=== PATIENT | female | born 1970 | race American Indian/Alaskan Native ===

== ENCOUNTER 2019-08-12 15:15 | Emergency (ER) | payer MEDICAID, OTHER ==
[2019-08-12] MEDS ORDERED: Albuterol/Ipratropium 3.0-0.5 MG/3 ML Neb Soln NEB ONE (15:53)
[2019-08-12] MEDS ORDERED: methylPREDNISolone Sodium Succinate 125 MG/2 ML SDV IVPUSH ONE (15:55)
[2019-08-12] MEDS ORDERED: Sodium Chloride 0.9% 10 ML Syringe FLUSH PRN (15:55)
--- NOTE | 2019-08-12 16:36 | CR ---
EXAMINATION: Chest 2V SEX: Female AGE: 48 years CLINICAL HISTORY: 48-year-old female smoker with productive cough and rhonchi on the right. INTERPRETATION: Abnormal shaggy accentuation of the perihilar lung markings with some peribronchial "cuffing" and generalized mild air trapping typical reactive airway disease i.e. chronic bronchitis. No focal lobar pneumonia, atelectasis or collapse. Normal cardiac silhouette. No pulmonary vascular congestion, cephalization of flow, alveolar edema or dependent pleural effusion. No lung mass or hilar/mediastinal lymphadenopathy (midline tracheal bronchial airway unremarkable). Old healed fracture deformity left clavicle. CONCLUSION: Chronic reactive airway disease typical "smoker". No lobar pneumonia.
[2019-08-12 16:37] LABS: ANION GAP 14.1 mEq/L (7-13)
[2019-08-12] MEDS ORDERED: Azithromycin 250 MG Tab PO ONE (16:47)
[2019-08-12] MEDS ORDERED: cefTRIAXone 1 GM in Sodium Chloride 0.9% 50 ML IV ONE (16:47)
[2019-08-12] MEDS ORDERED: Benzonatate 100 MG Cap PO ONE (16:48)
[2019-08-12] MEDS ORDERED: Albuterol 6.7 GM Inhaler INH ONE (16:56)
--- NOTE | 2019-08-12 16:56 | EDM.PDOC ---
Scribed by Monica Crook 08/12/19 [id number] for Josh Henley MD ED HPI GENERAL MEDICAL PROBLEM - General Chief Complaint: Respiratory Problem Stated Complaint: SHORTNESS OF BREATH, SWEATING, PAIN ON RIGHT SIDE Time Seen by Provider: 08/12/19 15:47 Source of Information: Reports: Patient, RN, RN Notes Reviewed History Limitations: Reports: No Limitations - History of Present Illness INITIAL COMMENTS - FREE TEXT/NARRATIVE: Patient arrives to ER by POV states that she had sinus infection 2 weeks ago. She has not improved coughing up yellow phlegm. 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 ED EXAM, GENERAL - Physical Exam Exam: See Below Exam Limited By: No Limitations General Appearance: Alert, WD/WN, No Apparent Distress Eye Exam: Bilateral Eye: Normal Inspection Nose: Normal Inspection, Normal Mucosa, No Blood Throat/Mouth: Normal Inspection, Normal Lips, Normal Teeth, Normal Gums, Normal Oropharynx, Normal Voice, No Airway Compromise Head: Atraumatic, Normocephalic Neck: Normal Inspection, Supple, Non-Tender, Full Range of Motion. No: Lymphadenopathy (L), Lymphadenopathy (R) Respiratory/Chest: No Respiratory Distress, No Accessory Muscle Use, Decreased Breath Sounds, Rhonchi, Wheezing Cardiovascular: Regular Rate, Rhythm, No Edema Back Exam: Normal Inspection Extremities: Normal Inspection, No Pedal Edema. No: Marlon's Sign Neurological: Alert, Oriented, No Motor/Sensory Deficits Psychiatric: Normal Mood Skin Exam: Warm, Dry, Intact, Normal Color, No Rash Course - Vital Signs Last Recorded V/S: Last Vital Signs Temp 97.1 F 08/12/19 15:38 Pulse 87 08/12/19 16:06 Resp 14 08/12/19 15:38 BP 156/90 H 08/12/19 15:38 Pulse Ox 99 08/12/19 15:38 - Orders/Labs/Meds Orders: Active Orders 24 hr Category Date Time Status Peripheral IV Care [RC] . DIRECTED Care 08/12/19 15:55 Active RT Aerosol Therapy [RC] ASDIRECTED Care 08/12/19 15:53 Active CULTURE BLOOD [BC] Stat Lab 08/12/19 15:55 Ordered CULTURE BLOOD [BC] Stat Lab 08/12/19 15:55 Ordered CULTURE BLOOD [BC] Stat Lab 08/12/19 16:08 Received Sodium Chloride 0.9% [Saline Flush] Med 08/12/19 15:55 Active 10 ml FLUSH ASDIRECTED PRN cefTRIAXone [Rocephin] 1 gm Med 08/12/19 16:47 Active Sodium Chloride 0.9% [Normal Saline] 50 ml IV ONETIME Blood Culture x2 Reflex Set [OM.PC] Stat Oth 08/12/19 15:54 Ordered Peripheral IV Insertion Adult [OM.PC] Stat Oth 08/12/19 15:54 Ordered Medication Orders Ceftriaxone Sodium 1 gm/ (Sodium Chloride) 50 mls @ 100 mls/hr IV ONETIME ONE Stop: 08/12/19 17:16 Sodium Chloride (Saline Flush) 10 ml FLUSH ASDIRECTED PRN PRN Reason: Keep Vein Open Labs: Laboratory Tests 08/12/19 08/12/19 08/12/19 Range/Units 16:08 16:08 16:08 WBC 9.9 (5.0-10.0) 10^3/uL RBC 5.31 (4.2-5.4) 10^6/uL Hgb 15.3 (12.0-16.0) g/dL Hct 46.3 (37.0-47.0) % MCV 87.2 (80-100) fL MCH 28.8 (27.0-34.0) pg MCHC 33.0 (33.0-35.0) g/dL Plt Count 318 (150-450) 10^3/uL Neut % (Auto) 66.2 (42.2-75.2) % Lymph % (Auto) 25.2 (20.5-50.1) % Dunn % (Auto) 6.4 (2-8) % Eos % (Auto) 2.0 (1.0-3.0) % Baso % (Auto) 0.2 (0.0-1.0) % Sodium 139 (136-145) mmol/L Potassium 4.1 (3.5-5.1) mmol/L Chloride 104 (98-107) mmol/L Carbon Dioxide 25 (21-32) mmol/L Anion Gap 14.1 H (7-13) mEq/L BUN 11 (7-18) mg/dL Creatinine 1.09 H (0.55-1.02) mg/dL Est Cr Clr Drug Dosing 48.84 mL/min Estimated GFR (MDRD) 53 BUN/Creatinine Ratio 10.1 (No establ ref range) Glucose 102 H (74-99) mg/dL Lactic Acid 0.6 (0.4-2.0) mmol/L Calcium 9.2 (8.5-10.1) mg/dL Total Bilirubin 0.3 (0.2-1.0) mg/dL AST 21 (15-37) U/L ALT 25 (14-59) U/L Alkaline Phosphatase 118 H (46-116) U/L Total Protein 7.8 (6.4-8.2) g/dL Albumin 3.8 (3.4-5.0) g/dL Globulin 4.0 Albumin/Globulin Ratio 0.9 Urine Color (YELLOW) Urine Appearance (CLEAR) Urine pH (5.0-9.0) Ur Specific [place] (1.005-1.030) Urine Protein (NEGATIVE) Urine Glucose (UA) (NEGATIVE) Urine Ketones (NEGATIVE) Urine Occult Blood (NEGATIVE) Urine Nitrite (NEGATIVE) Urine Bilirubin (NEGATIVE) Urine Urobilinogen (0.2-1.0) mg/dL Ur Leukocyte Esterase (NEGATIVE) Urine RBC /HPF Urine WBC (0-5/HPF) /HPF Ur Epithelial Cells (NOT SEEN) /HPF Urine Bacteria (0-FEW/HPF) /HPF Urine Mucus (NOT SEEN) /LPF 08/12/19 Range/Units 16:29 WBC (5.0-10.0) 10^3/uL RBC (4.2-5.4) 10^6/uL Hgb (12.0-16.0) g/dL Hct (37.0-47.0) % MCV (80-100) fL MCH (27.0-34.0) pg MCHC (33.0-35.0) g/dL Plt Count (150-450) 10^3/uL Neut % (Auto) (42.2-75.2) % Lymph % (Auto) (20.5-50.1) % Dunn % (Auto) (2-8) % Eos % (Auto) (1.0-3.0) % Baso % (Auto) (0.0-1.0) % Sodium (136-145) mmol/L Potassium (3.5-5.1) mmol/L Chloride (98-107) mmol/L Carbon Dioxide (21-32) mmol/L Anion Gap (7-13) mEq/L BUN (7-18) mg/dL Creatinine (0.55-1.02) mg/dL Est Cr Clr Drug Dosing mL/min Estimated GFR (MDRD) BUN/Creatinine Ratio (No establ ref range) Glucose (74-99) mg/dL Lactic Acid (0.4-2.0) mmol/L Calcium (8.5-10.1) mg/dL Total Bilirubin (0.2-1.0) mg/dL AST (15-37) U/L ALT (14-59) U/L Alkaline Phosphatase (46-116) U/L Total Protein (6.4-8.2) g/dL Albumin (3.4-5.0) g/dL Globulin Albumin/Globulin Ratio Urine Color Yellow (YELLOW) Urine Appearance Slightly cloudy (CLEAR) Urine pH 5.5 (5.0-9.0) Ur Specific [place] 1.020 (1.005-1.030) Urine Protein Negative (NEGATIVE) Urine Glucose (UA) Negative (NEGATIVE) Urine Ketones Negative (NEGATIVE) Urine Occult Blood Moderate H (NEGATIVE) Urine Nitrite Negative (NEGATIVE) Urine Bilirubin Negative (NEGATIVE) Urine Urobilinogen 0.2 (0.2-1.0) mg/dL Ur Leukocyte Esterase Negative (NEGATIVE) Urine RBC 10-20 H /HPF Urine WBC 0-5 (0-5/HPF) /HPF Ur Epithelial Cells Rare (NOT SEEN) /HPF Urine Bacteria Rare (0-FEW/HPF) /HPF Urine Mucus Rare (NOT SEEN) /LPF Meds: Medications Generic Name Dose Route Start Last Admin Trade Name Freq PRN Reason Stop Dose Admin Ceftriaxone Sodium 1 gm/ 50 mls @ 100 mls/hr 08/12/19 16:47 Sodium Chloride IV 08/12/19 17:16 ONETIME ONE Sodium Chloride 10 ml 08/12/19 15:55 Saline Flush FLUSH ASDIRECTED PRN Keep Vein Open Discontinued Medications Generic Name Dose Route Start Last Admin Trade Name Freq PRN Reason Stop Dose Admin Albuterol/Ipratropium 3 ml 08/12/19 15:53 08/12/19 16:05 Duoneb 3.0-0.5 Mg/3 Ml NEB 08/12/19 15:54 3 ml ONETIME ONE Administration Azithromycin 500 mg 08/12/19 16:47 Zithromax PO 08/12/19 16:48 ONETIME ONE Benzonatate 200 mg 08/12/19 16:48 Tessalon Perles PO 08/12/19 16:49 ONETIME ONE Methylprednisolone Sodium Succinate 125 mg 08/12/19 15:55 08/12/19 16:12 Solu-Medrol IVPUSH 08/12/19 15:56 125 mg ONETIME ONE Administration - Radiology Interpretation Free Text/Narrative:: Chest x-ray: Chronic reactive airway disease typical "smoker". No lobar pneumonia. See rad report. Departure - Departure Time of Disposition: 16:54 Disposition: Home, Self-Care 01 Condition: Good Clinical Impression: Acute exacerbation of chronic obstructive pulmonary disease (COPD) - Discharge Information *PRESCRIPTION DRUG MONITORING PROGRAM REVIEWED*: Not Applicable *COPY OF PRESCRIPTION DRUG MONITORING REPORT IN PATIENT CIARA: Not Applicable Instructions: Chronic Obstructive Pulmonary Disease Exacerbation, [id number] , Chronic Obstructive Pulmonary Disease Forms: ED Department Discharge Additional Instructions: Rx: Zithromax 500mg Rx: Albuterol Inhaler with spacer Rx: Tessalon Perles 200mg Rx: Prednisone 20mg Quit smoking. Follow up in clinic in 5 to 10 days for recheck. Sepsis Event Note (ED) - Evaluation Sepsis Screening Result: No Definite Risk - Focused Exam Vital Signs: Vital Signs Temp Pulse Resp BP Pulse Ox 08/12/19 16:06 87 08/12/19 15:38 97.1 F 81 14 156/90 H 99 - My Orders Last 24 Hours: My Active Orders 08/12/19 15:53 RT Aerosol Therapy [RC] ASDIRECTED 08/12/19 15:54 Blood Culture x2 Reflex Set [OM.PC] Stat Peripheral IV Insertion Adult [OM.PC] Stat 08/12/19 15:55 Peripheral IV Care [RC] . DIRECTED CULTURE BLOOD [BC] Stat CULTURE BLOOD [BC] Stat Sodium Chloride 0.9% [Saline Flush] 10 ml FLUSH ASDIRECTED PRN 08/12/19 16:08 CULTURE BLOOD [BC] Stat 08/12/19 16:47 cefTRIAXone [Rocephin] 1 gm Sodium Chloride 0.9% [Normal Saline] 50 ml IV ONETIME - Assessment/Plan Last 24 Hours: My Active Orders 08/12/19 15:53 RT Aerosol Therapy [RC] ASDIRECTED 08/12/19 15:54 Blood Culture x2 Reflex Set [OM.PC] Stat Peripheral IV Insertion Adult [OM.PC] Stat 08/12/19 15:55 Peripheral IV Care [RC] . DIRECTED CULTURE BLOOD [BC] Stat CULTURE BLOOD [BC] Stat Sodium Chloride 0.9% [Saline Flush] 10 ml FLUSH ASDIRECTED PRN 08/12/19 16:08 CULTURE BLOOD [BC] Stat 08/12/19 16:47 cefTRIAXone [Rocephin] 1 gm Sodium Chloride 0.9% [Normal Saline] 50 ml IV ONETIME I have read and agree with the documentation that has been completed regarding this visit. By signing this record, I attest that the documentation was completed in my physical presence and is an accurate record of the encounter.
== END 2019-08-12 17:10 | disposition home or self-care (01) ==
LOC: DL.ED 15:15
DX: J44.1 Chronic obstructive pulmonary disease with (acute) exacerbation (principal); F17.210 Nicotine dependence, cigarettes, uncomplicated; Z79.899 Other long term (current) drug therapy
CPT/HCPCS: 36415; 71046; 80053; 81001; 83605; 85025; 87040; 94640; 96365; 96375; 99285; A9270; J0696; J2930; J7050; J7620-GY

== ENCOUNTER 2019-11-22 15:11 | Emergency (ER) | payer MEDICAID ==
[2019-11-22] MEDS ORDERED: methylPREDNISolone Sodium Succinate 125 MG/2 ML SDV IM ONE (15:33)
[2019-11-22] MEDS ORDERED: Albuterol/Ipratropium 3.0-0.5 MG/3 ML Neb Soln NEB ONE (15:33)
--- NOTE | 2019-11-22 15:49 | CR ---
PROCEDURE INFORMATION: Exam: XR Chest, 1 View Exam date and time: 11/22/2019 3:37 PM Age: 48 years old Clinical indication: Shortness of breath; Additional info: Cough, shortness of breath TECHNIQUE: Imaging protocol: XR of the chest Views: 1 view. COMPARISON: CT Chest wo Cont 11/11/2019 11:33 AM FINDINGS: Lungs: Unremarkable. No consolidation. Pleural space: Unremarkable. No pleural effusion. No pneumothorax. Heart/Mediastinum: Unremarkable. No cardiomegaly. Bones/joints: Unremarkable. IMPRESSION: No acute findings.
--- NOTE | 2019-11-22 16:37 | EDM.PDOC ---
Scribed by Monica Crook 11/22/19 0571 for Cristina Doherty MD ED HPI GENERAL MEDICAL PROBLEM - General Chief Complaint: Syncope Stated Complaint: IN BY [facility] Time Seen by Provider: 11/22/19 15:27 Source of Information: Reports: Patient, EMS, EMS Notes Reviewed, RN, RN Notes Reviewed History Limitations: Reports: No Limitations - History of Present Illness INITIAL COMMENTS - FREE TEXT/NARRATIVE: Patient presents to the ED by [facility]. The patient coughed so hard that she passed out. She states she would not have woke up if her mom had not been there. She has a history of COPD and feels like this is a standard exacerbation for her. No fever or chills. No known sick contacts. No exposure to COVID. Patient only has Albuterol inhaler at home, which did not help. Onset: Gradual Duration: Getting Worse Location: Reports: Chest Quality: Reports: Ache Severity: Severe Improves with: Reports: None Worsens with: Reports: None Associated Symptoms: Reports: No Other Symptoms - Related Data Allergies Allergy/AdvReac Type Severity Reaction Status Date / Time No Known Allergies Allergy Verified 11/22/19 15:30 Home Meds: Home Meds Celecoxib [CeleBREX] 100 mg PO DAILY 08/12/19 [History] Sertraline [Zoloft] 100 mg PO DAILY 08/12/19 [History] Spironolactone [Aldactone] 50 mg PO DAILY 08/12/19 [History] Past Medical History Cardiovascular History: Reports: Hypertension [employer]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 ED EXAM, GENERAL - Physical Exam Exam: See Below Exam Limited By: No Limitations General Appearance: Alert, WD/WN, No Apparent Distress Eye Exam: Bilateral Eye: EOMI, Normal Inspection, PERRL Ears: Normal External Exam, Normal Canal, Hearing Grossly Normal, Normal TMs Nose: Normal Inspection, Normal Mucosa, No Blood Throat/Mouth: Normal Inspection, Normal Lips, Normal Teeth, Normal Gums, Normal Oropharynx, Normal Voice, No Airway Compromise Head: Atraumatic, Normocephalic Neck: Normal Inspection, Supple, Non-Tender, Full Range of Motion Respiratory/Chest: No Respiratory Distress, No Accessory Muscle Use, Wheezing (throughout), Prolonged Expiration Cardiovascular: Normal Peripheral Pulses, Regular Rate, Rhythm, No Edema, No Gallop, No JVD, No Murmur, No Rub GI/Abdominal: Normal Bowel Sounds, Soft, Non-Tender, No Organomegaly, No Distention, No Abnormal Bruit, No Mass (Female) Exam: Deferred Rectal (Female) Exam: Deferred Back Exam: Normal Inspection, Full Range of Motion, NT Extremities: Normal Inspection Neurological: Alert, Oriented, CN II-XII Intact, Normal Cognition, Normal Gait, Normal Reflexes, No Motor/Sensory Deficits Psychiatric: Normal Affect, Normal Mood Skin Exam: Warm, Dry, Intact, Normal Color, No Rash Course - Vital Signs Last Recorded V/S: Last Vital Signs Temp 97.6 F 11/22/19 15:38 Pulse 82 11/22/19 15:41 Resp 18 11/22/19 15:38 BP 140/57 L 11/22/19 15:38 Pulse Ox 93 L 11/22/19 15:38 - Orders/Labs/Meds Orders: Active Orders 24 hr Category Date Time Status RT Aerosol Therapy [RC] ASDIRECTED Care 11/22/19 15:33 Active Meds: Medications Discontinued Medications Generic Name Dose Route Start Last Admin Trade Name Freq PRN Reason Stop Dose Admin Albuterol/Ipratropium 3 ml 11/22/19 15:33 11/22/19 15:45 Duoneb 3.0-0.5 Mg/3 Ml NEB 11/22/19 15:34 3 ml ONETIME ONE Administration Methylprednisolone Sodium Succinate 125 mg 11/22/19 15:33 11/22/19 15:48 Solu-Medrol IM 11/22/19 15:34 125 mg ONETIME ONE Administration Departure - Departure Time of Disposition: 16:35 Disposition: Home, Self-Care 01 Condition: Good Clinical Impression: Acute exacerbation of chronic obstructive pulmonary disease (COPD) - Discharge Information *PRESCRIPTION DRUG MONITORING PROGRAM REVIEWED*: Not Applicable *COPY OF PRESCRIPTION DRUG MONITORING REPORT IN PATIENT CIARA: Not Applicable Instructions: Chronic Obstructive Pulmonary Disease Exacerbation, [id number] Forms: ED Department Discharge Sepsis Event Note (ED) - Focused Exam Vital Signs: Vital Signs Temp Pulse Resp BP Pulse Ox 11/22/19 15:41 82 11/22/19 15:38 97.6 F 85 18 140/57 L 93 L - My Orders Last 24 Hours: My Active Orders 11/22/19 15:33 RT Aerosol Therapy [RC] ASDIRECTED - Assessment/Plan Last 24 Hours: My Active Orders 11/22/19 15:33 RT Aerosol Therapy [RC] ASDIRECTED Assessment:: 48 yo female with COPD exacerbation Plan: improved with neb treatment in the clinic use home albuterol q4h/prn for sob solumedrol IM in ER prednisone burst for 5 days reviewed reasons to call/return to the ER fu with PCP in 2-3 days I have read and agree with the documentation that has been completed regarding this visit. By signing this record, I attest that the documentation was completed in my physical presence and is an accurate record of the encounter.
== END 2019-11-22 16:45 | disposition home or self-care (01) ==
LOC: DL.ED 15:11
DX: J44.1 Chronic obstructive pulmonary disease with (acute) exacerbation (principal); I10 Essential (primary) hypertension; Z79.899 Other long term (current) drug therapy
CPT/HCPCS: 71045; 94640; 96372; 99283; 99284; J2930; J7620-GY